=== PATIENT | male | born 1975 | race Caucasian/White ===

== ENCOUNTER 2021-03-18 14:08 | Emergency (ER) | payer OTHER ==
[~2021-03-18] VITALS: Ht 177.8 cm; Wt 150.4 kg
--- NOTE | 2021-03-18 14:48 | NUR ---
[employer] HELPER: PT AMBULATORY TO ROOM FROM LOBBY
[2021-03-18 15:05] LABS: BASOPHILS % (AUTO) 1 % (0-1); EOSINOPHILS % (AUTO) 2 % (1-7); LYMPHOCYTES % (AUTO) 33 % (22-44); MEAN CORPUSCULAR HGB CONC 34.5 g/dL (33.2-36.2); MONOCYTES % (AUTO) 10 % (2-9); NEUTROPHILS % (AUTO) 55 % (42-75); PLATELET COUNT 334 x10^3/uL (130-400); RED BLOOD COUNT 5.05 x10^6/uL (4.38-5.82); RED CELL DISTRIBUTION WIDTH 15.6 % (9.4-14.8)
[2021-03-18 15:07] LABS: MD NO
[2021-03-18 15:10] LABS: ALANINE AMINOTRANSFERASE 82 U/L (12-78); ANION GAP 7 mmol/L (5-15); CALCIUM 8.8 mg/dL (8.5-10.1); CHLORIDE 108 mmol/L (98-107); CREATININE 1.08 mg/dL (0.7-1.3)
[2021-03-18 15:12] LABS: ALKALINE PHOSPHATASE 85 U/L (45-117); BILIRUBIN,TOTAL 0.4 mg/dL (0.2-1.0); TOTAL PROTEIN 8.2 g/dL (6.4-8.2)
[2021-03-18 16:21] VITALS: BP 125/70
== END 2021-03-18 16:24 | disposition home or self-care (01) ==
LOC: ED 16:18
DX: R23.3 Spontaneous ecchymoses (principal)
CPT/HCPCS: 36415; 80053; 85025; 99283